=== PATIENT | female | born 1975 | race Caucasian/White ===

== ENCOUNTER 2020-12-03 18:52 | Emergency (ER) | payer OTHER ==
[2020-12-03] MEDS ORDERED: IBUPROFEN600 MG PO (19:45)
== END 2020-12-03 19:48 | disposition home or self-care (01) ==
LOC: ER1 18:52
DX: S52.125A Nondisplaced fracture of head of left radius, initial encounter for closed fracture (principal); W19.XXXA Unspecified fall, initial encounter; Y93.01 Activity, walking, marching and hiking; Y92.828 Other wilderness area as the place of occurrence of the external cause
CPT/HCPCS: 73080; 73090; 99283

== ENCOUNTER → 2021-04-18 | Outpatient (CLI) | payer OTHER ==
[~2021-04-18] MED LIST: IBUPROFEN600 MG PO
== END ==
LOC: KOH-I 12:08
DX: J20.9 Acute bronchitis, unspecified (principal); J18.9 Pneumonia, unspecified organism
CPT/HCPCS: 71046